=== PATIENT | female | born 1985 | race Asian ===

== ENCOUNTER → 2016-07-25 | Outpatient (CLI) | payer OTHER ==
--- NOTE | 2016-07-25 12:10 | DIAGNOSTIC IMAGING REPORT ---
MRI OF THE LEFT ANKLE NO CONTRAST CLINICAL HISTORY: Ankle pain. Suspected osteochondral talar dome lesion. COMPARISON STUDY: No previous studies for comparison. FINDINGS: Imaging was performed in sagittal, coronal, and axial planes. The plantar fascia appears unremarkable. There is no nodes of major ligamentous disruption. No tendon tears are visualized. There is marrow edema involving the medial aspect of the talar dome. There is an 11 x 6 x 4 mm lesion within the medial talar dome, consistent with osteochondritis dissecans. There is subjacent marrow edema. There is no fluid signal within the overlying cartilage. IMPRESSION: Osteochondritis desiccated and involving the medial talar dome with subjacent marrow edema. There is no fluid signal within the overlying cartilage. Electronically signed by: Jaquan Rea M.D. 07/25/2016 12:08 PM Dictated Date/Time: 07/25/2016 12:02 PM
== END | disposition home or self-care (01) ==
LOC: C.MRI 10:11
PROVIDERS: ATTEND Orthopaedic Surgery Sports Medicine
DX: M93.272 Osteochondritis dissecans, left ankle and joints of left foot (principal)

== ENCOUNTER → 2017-10-27 | Outpatient (CLI) | payer OTHER | END | disposition home or self-care (01) | LOC: C.RDSM 08:40 | PROVIDERS: ATTEND Orthopaedic Surgery Sports Medicine | DX: M89.9 Disorder of bone, unspecified (principal) ==